=== PATIENT | female | born 1950 | race Caucasian/White ===

== ENCOUNTER 2018-07-12 18:53 | Inpatient (IN) ==
[2018-07-12] MEDS ORDERED: ZOFRAN IV ONE (20:01)
[2018-07-12] MEDS ORDERED: NS 1,000 ML IV ONE (20:01)
[2018-07-12] MEDS ORDERED: ROCEPHIN 1 GM in NS 50 ML IV ONE (20:01)
[2018-07-12 20:31] LABS: BASO# 0.02 X1000 (0.0-0.2); BASO% 0.1 % (0.0-0.8); EOS# 0.12 X1000 (0.0-0.7); EOS% 0.7 % (0.0-10.0); HEMATOCRIT 41.8 % (37.0-47.0); HEMOGLOBIN 12.7 g/dL (12.0-16.0); IMM GRAN# 0.04 X1000 (0.0-0.04); IMM GRAN% 0.2 % (0.0-0.5); LYMPH# 0.53 X1000 (1.2-3.4); LYMPH% 3.3 % (20.5-51.1); MCH 26.2 PG (27-31); MCHC 30.4 g/dL (33-37); MCV 86.2 FL (81-99); MONO# 0.61 X1000 (0.11-0.59); MONO% 3.8 % (1.7-9.3); MPV 9.9 FL (7.4-10.4); NEUT# 14.82 X1000 (1.4-6.5); NEUT% 91.9 % (42.2-75.2); PLT 269 X1000 (130-400); RBC 4.85 XMIL (4.2-5.4); RDW 17.4 % (11.5-14.5); WBC 16.14 X1000 (4.8-10.8)
[2018-07-12 20:39] LABS: ALBUMIN 3.7 g/dL (3.5-5.0); CALCIUM 10.6 mg/dL (8.8-10.2); CREATININE 1.7 mg/dL (0.5-0.9); POTASSIUM 5.1 mmol/L (3.5-5.1); TOTAL BILIRUBIN 0.18 mg/dL (0.20-1.00); TOTAL PROTEIN 7.5 g/dL (6.3-8.3)
[2018-07-12 20:45] LABS: ALLEN TEST YES; BE 0.6 mmoll (-3.0-3.0); BLOOD TYPE ARTERIAL; HCO3-(ACT) 25.2 mmoll (20.0-26.0); METHB 1.1 % (0.0-1.5); O2(CT) 14.7 mL/dL (15.0-23.0); PCO2(98.6) 36 mmHg (35-45); PO2(98.6) 53 mmHg (60-100); SAMPLE BLOOD; SAO2 90.5 % (95.0-100.0); THB 11.9 g/dL (11.5-17.4); pH(98.6) 7.44 (7.35-7.45)
[2018-07-12 20:48] LABS: MODALITY CANNULA
--- NOTE | 2018-07-12 21:02 | Diag Imaging Result Doc PS360 ---
CHEST-PORTABLE - 07/12/2018 INDICATION: sob COMPARISON: 02/14/2014 FINDINGS: Lung volumes are severely low. No infiltrates or edema. Heart size is normal. IMPRESSION: Severely low lung volumes but otherwise negative. Electronically signed by Armin Browning 07/12/2018 8:59 PM
--- NOTE | 2018-07-12 21:43 | PROVIDER DOCUMENTATION ---
This chart was entered by Hattie Azul Scribe, acting as scribe for Juaquin Edwards MD. HPI-General Adult - General Chief Complaint: General Adult Stated Complaint: FEVER Time Seen by Provider: 07/12/18 19:45 Source: family Allergies/Adverse Reactions: Patient Allergies Allergy/AdvReac Type Severity Reaction Status Date / Time No Known Allergies Allergy Verified 07/12/18 19:20 Home Medications: Home Medication List Medication Instructions Recorded Confirmed Last Taken Type Aspirin EC 81 mg PO DAILY 05/23/12 02/04/16 02/04/16 09:00 History Levothyroxine [Synthroid] 125 mcg PO QAM 05/23/12 02/04/16 02/03/16 06:00 History Chlorthalidone 25 mg PO DAILY 09/23/13 02/04/16 02/04/16 09:00 History PRAVAstatin [Pravachol] 40 mg PO DAILY 09/23/13 02/04/16 02/04/16 21:00 History Sertraline [Zoloft] 50 mg PO HS 09/23/13 02/04/16 02/04/16 21:00 History Alprazolam [Xanax] 0.5 mg PO TID #0 tablet 02/20/14 02/05/16 02/04/16 17:00 Rx Gabapentin [Neurontin] 300 mg PO TID #60 capsule 02/20/14 02/05/16 02/04/16 17:00 Rx Lisinopril [Zestril] 10 mg PO BID #0 tablet 02/20/14 02/04/16 02/03/16 06:00 Rx Oxycodone HCl/Acetaminophen 1 each PO TID PRN #60 tablet 02/20/14 02/05/16 02/04/16 17:00 Rx [Percocet 5-325 mg Tablet] Buspirone [Buspar] 10 mg PO BID 02/04/16 02/05/16 02/04/16 17:00 History Ciclopirox Olamine 0.77% Cream 1 applicatn TOP BID 02/04/16 02/05/16 02/04/16 17:00 History [Loprox 0.77% Cream] Clopidogrel [Plavix] 75 mg PO DAILY 02/04/16 02/04/16 02/04/16 09:00 History Loratadine [Claritin] 10 mg PO DAILY 02/04/16 02/04/16 02/04/16 09:00 History Magnesium Hydroxide [Milk of 30 ml PO DAILY 02/04/16 02/04/16 02/04/16 09:00 History Magnesia] Metformin [Glucophage] 2 tab PO QHS 02/04/16 02/04/16 02/04/16 21:00 History Multivit,Fe,Ca,FA & Min [Thera M 1 each PO DAILY 02/04/16 02/04/16 02/04/16 09:00 History Plus] Polyethylene Glycol 3350 1 gm PO DAILY 02/04/16 02/04/16 02/04/16 09:00 History Protein Hydrolysate,Milk [Liquid 30 ml PO BID 02/04/16 02/05/16 02/04/16 17:00 History Protein Fortifier] Ranitidine HCl [Zantac] 150 mg PO DAILY 02/04/16 02/05/16 02/04/16 17:00 History Vitamin B Complex 1 each PO DAILY 02/04/16 02/04/16 02/04/16 09:00 History - History of Present Illness -Gen Adult Nature of Presenting Problems: Pt is 67/F presenting to ED from [facility]. Pt has hx of stroke and HTN, pt is nonverbal and has family member at bedside. Pt is reported to be at normal mentation. She presents to ED because of low-grade fever 99.8 and 100.8 and vomiting. Family member reports that pt has recently has "wet" sounding lungs per [facility]dc. Location of Pain/Injury: reports: none, other (pt does not appear to be in any pain at time of exams) Pain Radiation: reports: no radiation Quality of Pain: reports: none Severity: reports: mild Onset/Duration: reports: just prior to arrival Timing: reports: still present Context/Activities at Onset: reports: none Modifying Factors: improves with: nothing Associated Symptoms: reports: fever/chills, vomiting. denies: cough, diarrhea, shortness of breath Similar Symptoms Previously?: No Recently seen or treated by another doctor?: No Review of Systems - Adult - REVIEW OF SYSTEMS - ADULT Constitutional: reports: fever. denies: chills Eyes: reports: no symptoms reported Ears, Nose, Mouth & Throat: reports: no symptoms reported. denies: ear pain, sinus problem, throat pain Cardiovascular: denies: chest pain Respiratory: reports: no symptoms reported. denies: cough Gastrointestinal: reports: vomiting. denies: abdominal pain, diarrhea Genitourinary: reports: no symptoms reported. denies: frequent UTI's Musculoskeletal: reports: no symptoms reported Integumentary: reports: no symptoms reported Neurological: reports: no symptoms reported. denies: dizziness/vertigo, headache/migraines Psychiatric: reports: no symptoms reported Endocrine: reports: no symptoms reported Hematologic/Lymphatic: reports: no symptoms reported Allergic/Immunologic: reports: no symptoms reported All Other Systems: Reviewed and Negative Past History - Adult - PAST MEDICAL HISTORY-ADULT Review of Records: reports: Old Records Reviewed, Nursing Assessment Review, Medications Reviewed, Social history reviewed & non-contributory. Major Childhood Illnesses: reports: denies history Cardiovascular: reports: HTN, hyperlipidemia Respiratory: reports: asthma Gastrointestinal: reports: denies history Obstetrical/Gynecological: reports: denies history Genitourinary: reports: kidney disease Musculoskeletal: reports: arthritis Neurological: reports: cognitive dysfunction, CVA, stroke deficits, TIA Endocrine/Immune: reports: thyroid disorder Other Conditions: reports: denies history - PRIOR SURGERIES/PROCEDURES Surgical/Procedure History: reports: cholecystectomy, hysterectomy - IMMUNIZATION STATUS Childhood Immunizations: See Nurse Assessment Flu Vaccine: See Nurse Assessment - SOCIAL HISTORY Smoking: denies, non-smoker Substance Use: none/never Alcohol Use Frequency: never Living Situation: care facility Physical Exam-General - PHYSICAL EXAM-ADULT Initial Vital Signs Reviewed: Yes - CONSTITUTIONAL General Appearance: appears well, alert, no apparent distress, other (pt is non verbal, but reported to be at normal mentation per family member) - EYES Eyes: PERRL/EOMI, pink conjunctivae - HEAD, EARS, NOSE, MOUTH & THROAT HENMT: normocephalic/atraumatic, moist mucous membranes, normal ENT inspection - NECK Neck: non-tender, full range of motion, supple - RESPIRATORY Respiratory: rales, rhonchi (rales and rhonchi in L lower bases) - CARDIOVASCULAR Cardiovascular: normal peripheral pulses, no edema, tachycardia (113) - GASTROINTESTINAL (ABDOMEN) Abdominal Exam: normal bowel sounds, non tender, soft - LYMPHATIC Lymphatic: no adenopathy - MUSCULOSKELETAL Back Exam: normal inspection, no CVA tenderness, no vertebral tenderness Extremity: non-tender - SKIN Integumentary: normal color, warm/dry, other (pt has pressure ulcer on tip of R large toe. Raise rash w/ firm border to top of L foot, 20+ spots that are close in proximity to one another) - NEUROLOGIC Neurologic: grossly normal - PSYCHIATRIC Psych/Mental Status: normal mood/affect, normal thought content, normal thought process, other (reports to be at normal mentation, is non verbal but appears to follow along w/ conversation using body language) Progress - PLAN OF CARE/RESULTS Progress/Plan/Lab Results: Vital Signs - 8 hr 07/12/18 19:14 Temperature 98.2 F Pulse Rate 113 H Respiratory Rate 16 Blood Pressure 102/71 O2 Sat by Pulse Oximetry 85 L Result Diagrams: 07/12/18 19:50 07/12/18 19:50 - REASSESSMENT Reassessment #1 Time Reassessed: 21:39 Status: unchanged (LEUKOCYTOSIS, DEHYDRATIN, PROBABLE BI-BASILAR PNEUMONIA BY AUSCULTATION. CULTURES MADE AND ROCEPHIN GIVEN) - CONSULTS/PCP/HOSPITALIST Notification #1 *Consult/PCP/Hospitalist*: [place] Time Discussed: 21:37 Reason/Comments: for admission Consult Disposition: Admit Departure - Departure Date of Disposition Decision: 07/12/18 Time of Disposition Decision: 21:40 DIAGNOSIS: Leukocytosis, Pneumonia, Dehydration, Delirium Disposition: ADMITTED INPATIENT 09 Certified Medical Emergency: Emergent Condition: Stable Referrals and Follow-Ups: Shay Burciaga MD [Primary Care Provider] - - Critical Care Note This patient required my direct & personal management of CC.: No Attestation - Physician/ DESIREE Attestation Patient care was provided by Advanced Practice Provider:: No The physician spent face to face time with patient:: Yes Advanced Practice Provider documentation review:: Supervising physician onsite and consulted in the evaluation and care of this patient. The physician did have a face to face encounter with the patient. This chart was documented by the indicated scribe, (Hattie Azul, Vladimir) and accurately reflects the services I performed and decisions made by me, Juaquin Edwards MD, as attested by the provider's signature.
[2018-07-12] MEDS ORDERED: DUONEB (A & A) INH ONE (22:10)
[2018-07-12 22:22] LABS: URINE SOURCE CATH
[2018-07-12 22:29] LABS: BILIRUBIN URINE NEGATIVE (NEGATIVE); BLOOD URINE SMALL (NEGATIVE); COLOR YELLOW; GLUCOSE URINE 150 mg/dL (NEGATIVE); KETONE URINE NEGATIVE (NEGATIVE); LEUKOCYTES URINE NEGATIVE (NEGATIVE); NITRITE URINE NEGATIVE (NEGATIVE); PH URINE 6.5; PROTEIN URINE 600 mg/dL (NEGATIVE); SP GRAVITY URINE 1.008; TURBIDITY URINE CLEAR (CLEAR); UR EPITHELIAL CELLS <10 /HPF (<10); URINE BACTERIA NEGATIVE /HPF; URINE WBC <10 /HPF (<10); UROBILINOGEN URINE NORMAL (NORMAL)
[2018-07-12] MEDS ORDERED: XANAX MISC ONE (23:47)
--- NOTE | 2018-07-13 01:08 | HISTORY AND PHYSICAL ---
PHYSICIAN: No primary care physician. [facility] patient. HISTORY OF PRESENT ILLNESS: Ms. Jackie Montes De Oca is a 67-year-old woman with expressive aphasia from 2 prior CVAs. She also has a history of a preexisting aneurysm, hypertension, type 2 diabetes, hyperlipidemia. She was brought in today via EMS from the senior care because she was more confused than normal. Patient is unable to give me any history because she is nonverbal. Her son is at bedside and we both tried to extract as much information as we can. The patient nodded when she said she had a cough and said she had a fever or she was short of breath. The only thing I could also extract from the patient was that she was hurting in her left leg when I touched it. Other than that, we were unable to get any other information from the patient. The patient was actually able to recognize her son when he walked into the room. REVIEW OF SYSTEMS: I was unable to get any meaningful review of systems from the patient. The son did, however, tell me that on occasion sometimes she does choke on her food. ALLERGIES: No known allergies. MEDICATIONS: Home medication list is yet to be reconciled. SURGICAL HISTORY: Cholecystectomy, right breast lumpectomy. PAST MEDICAL HISTORY: See above including right breast cancer and history of kidney stones. SOCIAL HISTORY: She lives in a senior care. Not currently smoking according to the son, alcohol or illicit drug use. FAMILY HISTORY: Notable for diabetes, heart disease, alcoholic cirrhosis. LAB WORK: White count 16,000. Hemoglobin and hematocrit 12 and 41. Platelets 269 with 91% neutrophils. Glucose 222. Calcium 10.6. BUN 57. Creatinine 1.7, up from 1.2 the last time she was here. Alkaline phosphatase 121. AST 40. ALT 24. Blood gas: 7.44 pH, pCO2 of 36, pO2 of 53, bicarbonate 25, O2 saturation 88 and this is on 3 L. Chest film: Poor inspiratory effort which was not very informative. CT thorax and urinalysis are pending at this time. PHYSICAL EXAMINATION: GENERAL: Overweight, middle aged woman who is nonverbal but alert. She recognizes her son and will respond to her name. Her orientation is difficult to ascertain due to her speech impediment. She does appear to have a normal mood and affect. HEENT: Head is normocephalic, atraumatic. Eyes: PERRL. EOMI. Anicteric. Not pale. No facial asymmetry. ENT and oropharynx exam: No gross findings noted. No sign of cyanosis. NECK: Supple. No visualized JVD or thyromegaly. CHEST: Patient has diffuse coarse rales and wheezes. Decreased entry in both lung hernandez. CARDIOVASCULAR: First and second heart sounds heard. No gallops, murmurs or rubs. Rhythm is regular. ABDOMEN: Protuberant, soft, nontender. Bowel sounds are normal. RECTAL: Exam deferred at this time. EXTREMITIES: The patient has extensor contractures of the feet. There is positive clonus of both feet. There are clustered annular lesions with hyperpigmented centers noted on the dorsum of the left foot. No edema. No clubbing. No peripheral cyanosis. NEUROLOGICAL: Patient has dense right-sided hemiplegia and left lower extremity hemiparesis. Patient has expressive aphasia. SKIN: No overt skin breakdown ventrally. I did not do any dorsal examination. MUSCULAR: Patient has hypertonicity of entire right-sided extremities and left-sided lower extremity. ASSESSMENT: 1. Acute kidney injury secondary to poor oral intake and concomitant use of diuretics and JOHN inhibitors. 2. Hypoxia probably secondary to aspiration pneumonia. 3. Uncontrolled type 2 diabetes. 4. Expressive aphasia from prior cerebrovascular accident. 5. Hypertension. 6. Hyperthyroidism. 7. Hyperlipidemia. PLAN: Patient will be cautiously hydrated. BMP repeated in the a.m. to document response to hydration. At this point in time, patient is getting a noncontrast thorax CT to evaluate lung bases based on patient's chest exam. Patient has a history of aspiration risk and her pretest probability for pneumonia is on the high side especially since she is hypoxic and has wheezes. We will get Speech Therapy to see patient. In the interim, we will cover the patient with Zosyn for nosocomial and aspiration-related pathogens. Nebulizer treatment, O2 supplementation were instituted. Await urine cultures and may consider modifying treatment or adding on maybe vancomycin in case enterococcus is suspected. Diabetes will be managed with sliding scale. Avoiding potentially neurotoxic medications in the short term and also avoid any potential nephrotoxic medications. cc: Vamshi Yang MD
[2018-07-13] MEDS ORDERED: ZOFRAN IV PRN (02:34)
[2018-07-13] MEDS ORDERED: TYLENOL PO PRN (02:34)
[2018-07-13] MEDS: LOVENOX SUBQ SCH (03:56)
[2018-07-13] MEDS: ZOSYN 3.375 GM in NS 50 ML IV SCH ×4 (03:56→22:40)
[2018-07-13] MEDS: NS 1,000 ML IV SCH ×2 (03:56→15:00)
[2018-07-13] MEDS ORDERED: DUONEB (A & A) INH SCH (04:00)
[2018-07-13 05:02] LABS: INR 0.94; PROTIME 13.4 Seconds (11.0-16.0)
[2018-07-13] MEDS: HUMALOG SUBQ SCH ×4 (06:24→22:46)
[2018-07-13] MEDS ORDERED: PERCOCET-5 PO PRN (07:00)
--- NOTE | 2018-07-13 07:04 | Diag Imaging Result Doc PS360 ---
EXAM: CT THORAX W/O CONTRAST 07/12/2018 HISTORY: PNA possible TECHNIQUE: This exam was performed using automated exposure control, adjustment of mA or kV according to patient size, and/or use of iterative reconstruction technique. COMMENT: The current examination is compared with the previous examination of 03/23/2018. There are ill-defined opacities present in both lower lobes particularly the right lower lobe. Some nodularity is noted in the left lower lobe. The mucous plug is noted in the peripheral airways in the left lower lobe at the time the previous study has apparently improved slightly. There is a calcified granuloma in the right middle lobe. There is extensive atherosclerotic calcification in the aorta and brachiocephalic vessels. There are coronary calcifications. There are calcified nodes in the subcarina and right hilum. There is at least one granuloma in the spleen. The spleen is slightly enlarged, measuring slightly over 13 cm. This is not changed significantly since the previous study. The liver appears somewhat less hypodense. IMPRESSION: Bronchopneumonia. Advise follow-up with plain radiography until clear. Improved hepatic steatosis. Electronically signed by Almas Finley 07/13/2018 7:02 AM
--- NOTE | 2018-07-13 07:06 | EKG Report ---
Test Performed on : 07/12/2018 10:49:29 PM Test Reason : sob Blood Pressure : / mmHG Vent. Rate : 101 BPM Atrial Rate : 101 BPM P-R Int : 176 ms QRS Dur : 084 ms QT Int : 354 ms P-R-T Axes : 036 -23 059 degrees QTc Int : 459 ms Sinus tachycardia. Low voltage QRS Borderline ECG When compared with ECG of 05-FEB-2016 05:46, Nonspecific T wave abnormality no longer evident in Anterior leads Unconfirmed Result
[2018-07-13] MEDS: PROTONIX IV SCH (07:54)
[2018-07-13] MEDS: SYNTHROID PO SCH (07:54)
[2018-07-13 08:02] LABS: CALCIUM 9.6 mg/dL (8.8-10.2); CREATININE 1.6 mg/dL (0.5-0.9); MAGNESIUM 2.3 mg/dL (1.5-2.7); POTASSIUM 4.4 mmol/L (3.5-5.1)
[2018-07-13 08:23] LABS: BASO# 0.01 X1000 (0.0-0.2); BASO% 0.1 % (0.0-0.8); EOS# 0.09 X1000 (0.0-0.7); EOS% 0.6 % (0.0-10.0); HEMATOCRIT 35.4 % (37.0-47.0); HEMOGLOBIN 10.8 g/dL (12.0-16.0); IMM GRAN# 0.04 X1000 (0.0-0.04); IMM GRAN% 0.3 % (0.0-0.5); LYMPH# 1.33 X1000 (1.2-3.4); LYMPH% 8.4 % (20.5-51.1); MCH 26.7 PG (27-31); MCHC 30.5 g/dL (33-37); MCV 87.6 FL (81-99); MONO# 0.87 X1000 (0.11-0.59); MONO% 5.5 % (1.7-9.3); NEUT# 13.41 X1000 (1.4-6.5); NEUT% 85.1 % (42.2-75.2); PLT 223 X1000 (130-400); RBC 4.04 XMIL (4.2-5.4); RDW 17.4 % (11.5-14.5); WBC 15.75 X1000 (4.8-10.8)
[2018-07-13 08:25] LABS: BANDS 6 % (0-1); LYMPHS 6 % (21-51); MONO 4 % (1-9); SEGS 84 % (42-75)
--- NOTE | 2018-07-13 09:48 | Diag Imaging Result Doc PS360 ---
ABDOMEN FLAT/UPRIGHT - 07/13/2018 INDICATION: constipation COMPARISON: 02/09/2013 FINDINGS: There is mild constipation of the descending and distal colon as well as the rectum. No small bowel obstruction or free air. Stable cholecystectomy clips. IMPRESSION: Mild constipation. Electronically signed by Armin Browning 07/13/2018 9:46 AM
[2018-07-13] MEDS ORDERED: INSULIN PEN NEEDLES ONE (09:52)
[2018-07-13] MEDS: BASAGLAR SUBQ SCH ×2 (09:57→09:59)
[2018-07-13] MEDS: NEURONTIN PO SCH ×3 (10:00→17:00)
[2018-07-13] MEDS: XANAX PO SCH ×3 (10:00→22:43)
[2018-07-13] MEDS: NORVASC PO SCH (10:00)
[2018-07-13] MEDS: ICAR-C PO SCH (10:00)
[2018-07-13] MEDS: ASPIRIN EC PO SCH (10:00)
[2018-07-13] MEDS: THERA M PLUS PO SCH (10:00)
[2018-07-13] MEDS: PLAVIX PO SCH (10:00)
[2018-07-13] MEDS: PRINIVIL PO SCH ×2 (10:00→22:43)
[2018-07-13] MEDS: LOPROX 0.77% TOP SCH ×2 (10:01→22:55)
[2018-07-13] MEDS: DUONEB (A & A) INH SCH ×3 (10:15→21:05)
[2018-07-13] MEDS: MUCOMYST 20% INH SCH ×2 (10:15→21:05)
[2018-07-13] MEDS: LIPITOR PO SCH (22:43)
[2018-07-13] MEDS: SEROQUEL PO SCH (22:43)
[2018-07-14] MEDS: DUONEB (A & A) INH SCH ×4 (03:20→21:13)
[2018-07-14] MEDS: ZOSYN 3.375 GM in NS 50 ML IV SCH ×5 (04:53→21:34)
[2018-07-14] MEDS: HUMALOG SUBQ SCH ×4 (06:41→21:29)
[2018-07-14] MEDS: LOVENOX SUBQ SCH (06:48)
[2018-07-14] MEDS: PROTONIX IV SCH (06:49)
[2018-07-14] MEDS: SYNTHROID PO SCH (06:49)
--- NOTE | 2018-07-14 07:42 | PROGRESS NOTE ---
DATE: 07/14/2018 SUBJECTIVE: Ms. Montes De Oca is doing fair. Not able to give good history as patient has expressive aphasia. No high-grade fever, chills. No nausea, vomiting. Denied any diarrhea. According to nurses, the patient did have good day yesterday. The patient admitted with cough and chest congestion, altered mental status, found to have bilateral lower lobe infiltrate. OBJECTIVE: Vital Signs: Noted. Neck: Supple. No JVD. Lungs: Bibasilar crepitations. Heart: S1 and S2 heard. Abdomen: Soft, globular. Bowel sounds present. Extremities: No cyanosis, clubbing. Patient does have rash on the left foot. PRINTING TABLE HAND: Alert, awake, expressive aphasia, right-sided weakness. CONSIDERATIONS: Possible aspiration pneumonia, diabetes mellitus, hypertension, expressive aphasia, rash on the left foot, hypothyroidism, chronic kidney disease. PLAN: We will continue current treatment. Close observation. Bronchodilator treatment. Aspiration precautions. Overall plan discussed with the patient. We will continue sliding scale insulin and current treatment. cc: Shay Burciaga MD
[2018-07-14] MEDS: BASAGLAR SUBQ SCH (09:27)
[2018-07-14] MEDS: ASPIRIN EC PO SCH (09:28)
[2018-07-14] MEDS: NEURONTIN PO SCH ×3 (09:28→17:33)
[2018-07-14] MEDS: LOPROX 0.77% TOP SCH ×2 (09:28→21:30)
[2018-07-14] MEDS: NORVASC PO SCH (09:28)
[2018-07-14] MEDS: THERA M PLUS PO SCH (09:28)
[2018-07-14] MEDS: XANAX PO SCH ×3 (09:28→21:21)
[2018-07-14] MEDS: PLAVIX PO SCH (09:28)
[2018-07-14] MEDS: ICAR-C PO SCH (09:28)
[2018-07-14] MEDS: PRINIVIL PO SCH ×2 (09:28→21:21)
[2018-07-14] MEDS: MUCOMYST 20% INH SCH ×2 (09:46→21:13)
[2018-07-14] MEDS: LIPITOR PO SCH (21:21)
[2018-07-14] MEDS: SEROQUEL PO SCH (21:21)
[2018-07-15] MEDS: DUONEB (A & A) INH SCH ×4 (03:12→21:17)
[2018-07-15] MEDS: ZOSYN 3.375 GM in NS 50 ML IV SCH (05:36)
[2018-07-15] MEDS: SODIUM CHLORIDE 0.9% INJ SCH (05:37)
[2018-07-15] MEDS: SYNTHROID PO SCH (06:12)
[2018-07-15] MEDS: PROTONIX IV SCH (06:12)
[2018-07-15] MEDS: LOVENOX SUBQ SCH (06:12)
[2018-07-15] MEDS: HUMALOG SUBQ SCH ×4 (06:20→21:39)
[2018-07-15 07:36] LABS: BASO# 0.01 X1000 (0.0-0.2); BASO% 0.2 % (0.0-0.8); EOS# 0.28 X1000 (0.0-0.7); EOS% 4.3 % (0.0-10.0); HEMOGLOBIN 10.3 g/dL (12.0-16.0); LYMPH# 1.14 X1000 (1.2-3.4); LYMPH% 17.4 % (20.5-51.1); MCH 25.9 PG (27-31); MCHC 29.4 g/dL (33-37); MCV 88.2 FL (81-99); MONO% 7.6 % (1.7-9.3); MPV 9.8 FL (7.4-10.4); NEUT# 4.62 X1000 (1.4-6.5); NEUT% 70.5 % (42.2-75.2); PLT 216 X1000 (130-400); RBC 3.97 XMIL (4.2-5.4); RDW 17.4 % (11.5-14.5); WBC 6.55 X1000 (4.8-10.8)
[2018-07-15 08:12] LABS: ALB/GLOB RATIO 0.7; ALBUMIN 2.7 g/dL (3.5-5.0); CALCIUM 9.2 mg/dL (8.8-10.2); MAGNESIUM 2.3 mg/dL (1.5-2.7); POTASSIUM 3.5 mmol/L (3.5-5.1); TOTAL BILIRUBIN 0.28 mg/dL (0.20-1.00); TOTAL PROTEIN 6.8 g/dL (6.3-8.3)
[2018-07-15] MEDS: PLAVIX PO SCH (08:52)
[2018-07-15] MEDS: ASPIRIN EC PO SCH (08:53)
[2018-07-15] MEDS: THERA M PLUS PO SCH (08:53)
[2018-07-15] MEDS: BASAGLAR SUBQ SCH (08:53)
[2018-07-15] MEDS: XANAX PO SCH ×3 (08:53→20:16)
[2018-07-15] MEDS: ICAR-C PO SCH (08:53)
[2018-07-15] MEDS: PRINIVIL PO SCH ×2 (08:53→20:16)
[2018-07-15] MEDS: NORVASC PO SCH (08:53)
[2018-07-15] MEDS: NEURONTIN PO SCH ×3 (08:53→20:16)
[2018-07-15] MEDS: LOPROX 0.77% TOP SCH ×2 (08:54→20:18)
[2018-07-15] MEDS: MUCOMYST 20% INH SCH ×2 (10:35→21:17)
--- NOTE | 2018-07-15 11:47 | PROGRESS NOTE ---
DATE: 07/15/2018 SUBJECTIVE: The patient is doing fair. The patient had low-grade fever. No nausea or vomiting. Oral intake is fair. Mild cough, no expectoration. History part is limited. OBJECTIVE: Vitals: Her vital signs are noted. T-max 99.2 degrees. Neck: Supple. No JVD. Lungs: Decreased air entry to both bases. CVS: S1 and S2 heard. Abdomen: Soft, globular. Bowel sounds present. Extremities: The patient does have rash on the left foot. PRINCIPAL JAVA DEVELOPER: Alert and awake. The patient has right-sided weakness and expressive aphasia. LABORATORY DATA: BUN 35, creatinine was 2, potassium 3.5. PROBLEMS: 1. Possible aspiration pneumonia. 2. Chronic kidney disease. 3. CVA with right-sided weakness. 4. Diabetes mellitus. 5. Hypothyroidism. PLAN: The patient does have chronic kidney disease. I am going to get a renal ultrasound. I will also get noncontrast CT scan of the abdomen and pelvis for further evaluation. We will get Nephrology consult. Continue the rest of the treatment and close observation. cc: Shay Burciaga MD
[2018-07-15] MEDS: ZOSYN 2.25 GM in NS 50 ML IV SCH ×3 (12:40→23:24)
--- NOTE | 2018-07-15 16:44 | Diag Imaging Result Doc PS360 ---
EXAM: US RENAL 2 (RETROPER) COMPLETE INDICATION: ckd TECHNIQUE: COMPARISON: None. FINDINGS: There is a 9 mm echogenic focus associated with the right kidney that probably represents a small intrarenal stone. There is a 1.9 cm simple cyst associated with the left kidney. Near the mid left kidney, there is a 2.5 cm hypoechoic focus. This probably represents a prominent lobule of normal renal tissue. It is difficult to exclude a small mass. If not contraindicated, contrast-enhanced CT of the abdomen and pelvis would be helpful. Otherwise, MRI may be an option. The right kidney measures 12.1 cm and the left kidney measures 11.5 cm in the greatest longitudinal axes. Both renal cortices measure up to 0.9 cm in thickness. There is a Watson catheter in the urinary bladder. The urinary bladder is grossly unremarkable, otherwise. IMPRESSION: 1.Likely small nonobstructing intrarenal stone on the right. 2.Low dense somewhat rounded focus associated with the left renal cortex that probably represents a lobule of normal tissue. A small mass is difficult to completely exclude. Please see above discussion. Electronically signed by Robson Vargas 07/15/2018 4:41 PM
[2018-07-15] MEDS: NS + KCL 20 MEQ 1,000 ML IV SCH (17:46)
--- NOTE | 2018-07-15 19:40 | NEPHROLOGY CONSULTATION ---
DATE: 07/15/2018 REASON FOR CONSULTATION: Abnormal kidney function. HISTORY OF PRESENT ILLNESS: Ms Montes De Oca is a 67-year-old white female who resides in a care home facility because of history of a stroke with aphasia and bed-bound state. She has a history of diabetes, hypertension, hyperlipidemia. She does not know why she is in the hospital. The notes state that she was brought in because she had altered mental status. Reference also to fever and shortness of breath. She is awake, alert, asked for the remote. No complaints. Very limited history because she is not able to answer my questions. PAST MEDICAL HISTORY: As above. HOME MEDICATIONS: Include aspirin, levothyroxine, sertraline, gabapentin, oxycodone, alprazolam, lisinopril, clopidogrel, multivitamin, ranitidine, amlodipine, atorvastatin, insulin, ipratropium, albuterol, quetiapine. ALLERGIES: None. SOCIAL HISTORY: As above. FAMILY HISTORY: Otherwise noncontributory. REVIEW OF SYSTEMS: Otherwise noncontributory. PHYSICAL EXAMINATION: Vital Signs: Blood pressure 122/61, heart rate 78, respirations 16, afebrile. General: No acute distress. Skin: Warm and dry. Conjunctivae are pink. Pupils are equal. Neck: Neck veins are not distended. Heart: Regular without gallops or murmurs. Lungs: Have equal breath sounds. No crackles or wheezes. Abdomen: Soft, nontender. Bowel sounds present. Extremities: No edema, clubbing or cyanosis. Extension contractures in the feet. IMPRESSION: Chronic kidney disease. We do not have a good recent historical data. Creatinine was 1.7 on presentation, 1.2 in 2016. Her urine has significant proteinuria, minimal blood consistent with diabetic nephropathy. She is on appropriate therapy at this time. No changes are required. Will follow. cc: MD Shay Jacobs MD
[2018-07-15] MEDS: LIPITOR PO SCH (20:16)
[2018-07-15] MEDS: SEROQUEL PO SCH (20:16)
[2018-07-16] MEDS: DUONEB (A & A) INH SCH ×4 (03:16→21:37)
[2018-07-16] MEDS: ZOSYN 2.25 GM in NS 50 ML IV SCH ×4 (04:45→22:56)
[2018-07-16] MEDS: LOVENOX SUBQ SCH (06:08)
[2018-07-16] MEDS: SODIUM CHLORIDE 0.9% INJ SCH (06:08)
[2018-07-16] MEDS: PROTONIX IV SCH (06:08)
[2018-07-16] MEDS: SYNTHROID PO SCH (06:09)
[2018-07-16] MEDS: HUMALOG SUBQ SCH ×4 (06:09→21:17)
[2018-07-16] MEDS: NEURONTIN PO SCH ×3 (08:52→21:15)
[2018-07-16] MEDS: XANAX PO SCH ×3 (08:52→21:15)
[2018-07-16] MEDS: NORVASC PO SCH (08:52)
[2018-07-16] MEDS: THERA M PLUS PO SCH (08:52)
[2018-07-16] MEDS: PRINIVIL PO SCH ×2 (08:52→21:15)
[2018-07-16] MEDS: ASPIRIN EC PO SCH (08:52)
[2018-07-16] MEDS: ICAR-C PO SCH (08:52)
[2018-07-16] MEDS: PLAVIX PO SCH (08:52)
[2018-07-16] MEDS: NS + KCL 20 MEQ 1,000 ML IV SCH ×2 (08:53→22:54)
[2018-07-16] MEDS: BASAGLAR SUBQ SCH (08:53)
[2018-07-16] MEDS: LOPROX 0.77% TOP SCH ×2 (08:53→21:16)
[2018-07-16] MEDS: MUCOMYST 20% INH SCH ×2 (10:21→21:37)
--- NOTE | 2018-07-16 11:49 | PROGRESS NOTE ---
DATE: 07/16/2018 SUBJECTIVE: Ms. Montes De Oca is doing fair. Not able to give any history. No high-grade fever or chills. No nausea or vomiting. Oral intake is fair. Patient does have Watson catheter. I reviewed her renal ultrasound result. Also Nephrology consult noted. OBJECTIVE: Vital signs: Noted. Neck: Supple. No JVD. Lungs: Bilateral good air entry present. Decreased air entry both the bases. CVS: S1 and S2 heard. Abdomen: Soft, nontender. Bowel sounds present. PRODUCT SAFETY PROFESSIONAL: Alert, awake. Patient does have right-sided weakness. Expressive aphasia. PROBLEM LIST: 1. Hypertension. 2. Diabetes mellitus. 3. Chronic kidney disease. 4. Possible aspiration pneumonia. 5. Hypothyroidism. PLAN: Consider blood work again. Continue IV antibiotics. Pulmonary toilet. Bronchodilator treatment. If clinical condition permits, we will consider further workup, possible discharge within a day or 2. cc: Shay Burciaga MD
[2018-07-16] MEDS: LIPITOR PO SCH (21:15)
[2018-07-16] MEDS: SEROQUEL PO SCH (21:16)
[2018-07-17] MEDS: DUONEB (A & A) INH SCH ×4 (03:17→19:35)
--- NOTE | 2018-07-17 03:54 | PROGRESS NOTE ---
DATE: 07/13/2018 SUBJECTIVE: Ms. Montes De Oca is a 67-year-old, white, female patient, a resident of [facility], admitted with chest congestion, cough, wheezing, shortness of breath, not responding to outpatient treatment. The patient also had increasing confusion. Patient had expressive aphasia. History part was limited. In the emergency room, the patient was found to have chronic kidney disease, which I was aware of, low lung volumes. The patient does have multiple medical problems. Evaluated in the ER. Admitted for further care. Admission history and physical noted. PAST MEDICAL HISTORY: Significant for hypertension, diabetes mellitus, hyperlipidemia, CVA with left-sided weakness, chronic kidney disease, hypothyroidism, gastritis and reflux disease, chronic pain, history of breast cancer. PHYSICAL EXAMINATION: Vital Signs: Noted. INCOMPLETE REPORT/DICTATION STOPS cc: Shay Burciaga MD
[2018-07-17] MEDS: SODIUM CHLORIDE 0.9% INJ SCH (06:19)
[2018-07-17] MEDS: ZOSYN 2.25 GM in NS 50 ML IV SCH ×4 (06:19→22:31)
[2018-07-17] MEDS: PROTONIX IV SCH (06:19)
[2018-07-17] MEDS: LOVENOX SUBQ SCH (06:20)
[2018-07-17] MEDS: NS + KCL 20 MEQ 1,000 ML IV SCH ×2 (06:20→14:06)
[2018-07-17] MEDS: SYNTHROID PO SCH (06:20)
[2018-07-17] MEDS: HUMALOG SUBQ SCH ×4 (06:46→22:14)
--- NOTE | 2018-07-17 06:52 | PROGRESS NOTE ---
DATE: 07/17/2018 SUBJECTIVE: Ms. Montes De Oca is doing fair. The patient did have mild cough. No expectoration. No high-grade fever or chills. Denied any nausea or vomiting. OBJECTIVE: Vital Signs: Her vital signs noted. Neck: Supple. No JVD. Lungs: Bibasilar crepitations. Heart: S1 and S2 heard. Abdomen: Soft, globular. Bowel sounds present. DETACKER: Alert, awake. Patient does have expressive aphasia and right-sided weakness. ASSESSMENT/PLAN: I am going to check appropriate labs today. Continue current treatment. After reviewing labs and chest x-ray, if clinical condition permits, I am planning to discharge her back to rehab soon. cc: Shay Burciaga MD
[2018-07-17 07:32] LABS: BASO# 0.04 X1000 (0.0-0.2); BASO% 0.8 % (0.0-0.8); EOS# 0.54 X1000 (0.0-0.7); EOS% 11.1 % (0.0-10.0); HEMATOCRIT 32.2 % (37.0-47.0); HEMOGLOBIN 9.7 g/dL (12.0-16.0); IMM GRAN# 0.02 X1000 (0.0-0.04); IMM GRAN% 0.4 % (0.0-0.5); LYMPH# 1.21 X1000 (1.2-3.4); LYMPH% 24.9 % (20.5-51.1); MCH 26.7 PG (27-31); MCHC 30.1 g/dL (33-37); MCV 88.7 FL (81-99); MONO# 0.44 X1000 (0.11-0.59); MONO% 9.1 % (1.7-9.3); MPV 9.9 FL (7.4-10.4); NEUT# 2.61 X1000 (1.4-6.5); NEUT% 53.7 % (42.2-75.2); PLT 241 X1000 (130-400); RBC 3.63 XMIL (4.2-5.4); RDW 16.8 % (11.5-14.5); WBC 4.86 X1000 (4.8-10.8)
--- NOTE | 2018-07-17 07:35 | Diag Imaging Result Doc PS360 ---
EXAM: CHEST-PORTABLE 07/17/2018 HISTORY: dyspnea TECHNIQUE: AP portable at 0529 COMMENT: There is increased ill-defined opacity in both lung bases compared to 07/12/2018. IMPRESSION: Pulmonary edema versus pneumonia. Electronically signed by Almas Finley 07/17/2018 7:33 AM
[2018-07-17 08:13] LABS: ALB/GLOB RATIO 0.5; ALBUMIN 2.2 g/dL (3.5-5.0); CALCIUM 8.5 mg/dL (8.8-10.2); CREATININE 1.4 mg/dL (0.5-0.9); TOTAL BILIRUBIN 0.17 mg/dL (0.20-1.00); TOTAL PROTEIN 6.3 g/dL (6.3-8.3)
[2018-07-17] MEDS: PLAVIX PO SCH (08:41)
[2018-07-17] MEDS: ICAR-C PO SCH (08:41)
[2018-07-17] MEDS: XANAX PO SCH ×3 (08:41→21:56)
[2018-07-17] MEDS: PRINIVIL PO SCH ×2 (08:41→21:56)
[2018-07-17] MEDS: THERA M PLUS PO SCH (08:41)
[2018-07-17] MEDS: ASPIRIN EC PO SCH (08:42)
[2018-07-17] MEDS: BASAGLAR SUBQ SCH (08:42)
[2018-07-17] MEDS: NEURONTIN PO SCH ×3 (08:42→21:56)
[2018-07-17] MEDS: NORVASC PO SCH (08:42)
[2018-07-17] MEDS: LOPROX 0.77% TOP SCH ×2 (08:57→22:14)
[2018-07-17] MEDS: MUCOMYST 20% INH SCH ×2 (09:35→19:35)
[2018-07-17] MEDS ORDERED: CALMOSEPTINE OINTMENT TOP PRN (10:37)
--- NOTE | 2018-07-17 11:19 | NEPHROLOGY PROGRESS NOTE ---
DATE: 07/17/2018 SUBJECTIVE: Patient is sitting up in bed. She will shake her head if she has any complaints. Expressive aphasia noted. OBJECTIVE: Vital Signs: Temperature 97.7 degrees, pulse 75, respiratory rate 20, blood pressure 145/65. Intake 2.9 L. Output 2.6 L via Watson catheter. General: Elderly female, resting in bed. No acute distress. HEENT: Normocephalic and atraumatic. She does have a facial droop from previous CVA. Neck: Supple. Trachea midline. No JVD. Cardiovascular: Regular rate and rhythm. No murmur or gallop. Pulmonary: She is clear but diminished breath sounds to the bases. Remains on O2 supplementation via nasal cannula. Abdomen: Soft, with positive bowel sounds. Nontender and nondistended. : Watson catheter with yellow urine noted. Extremities: She has upper and lower left general edema that appears related to her hemiparalysis. No pretibial edema to the right. Integumentary: Skin is warm and dry. Neurological: She is alert. Difficult to communicate. Lab Data: WBC of 4.8, hemoglobin 9.7. Sodium 140, potassium 4.0, CO2 19, creatinine 1.4 (1.7). Chest x-ray, she continues with ill-defined opacity of lungs compared to previous. Her renal size is 12 cm left kidney and 11.5 cm right kidney. ASSESSMENT AND PLAN: 1. Chronic kidney disease. Likely, this is her historical baseline. We have no recent, old data. She was noted to have a creatinine of 1.2 back in 2016. From a renal perspective, we have nothing further to add to her treatment plan. She can follow up with us as an outpatient within 2 to 3 weeks after discharge. 2. Electrolytes, acid-base balance, anemia. These are stable. No changes. 3. Disposition. Primary believes she may go to rehab today or tomorrow. Dictated by PAVEL Molina for Eugenio Cabrales MD Face to face encounter, data reviewed, discussed with Camilo Constantino on 07/17/18. I agree with the above assessment and plan of care. cc: MD Shay Jacobs MD MTDD
[2018-07-17] MEDS ORDERED: LASIX IV ONE (20:17)
[2018-07-17] MEDS: LIPITOR PO SCH (21:56)
[2018-07-17] MEDS: SEROQUEL PO SCH (21:56)
[2018-07-18] MEDS: DUONEB (A & A) INH SCH ×4 (03:31→21:09)
[2018-07-18] MEDS: ZOSYN 2.25 GM in NS 50 ML IV SCH ×4 (04:40→22:40)
[2018-07-18] MEDS: LOVENOX SUBQ SCH (05:00)
[2018-07-18] MEDS: HUMALOG SUBQ SCH ×4 (06:53→22:39)
[2018-07-18] MEDS: SYNTHROID PO SCH (07:00)
[2018-07-18] MEDS: PROTONIX IV SCH (07:00)
--- NOTE | 2018-07-18 07:18 | PROGRESS NOTE ---
DATE: 07/18/2018 SUBJECTIVE: Ms. Montes De Oca is doing fair. No high-grade fever or chills. Oral intake is poor. Chest x-ray done yesterday revealed pulmonary edema versus pneumonia. I gave her IV Lasix and patient output was around 4200 mL. Her O2 saturation is 96%. Patient is not able to give good history. OBJECTIVE: Vital Signs: Vital signs noted. Neck is supple. No JVD. Lungs: Decreased air entry both the bases. CVS: S1 and S2 heard. Abdomen: Soft, globular. Bowel sounds present. SLIVER LAPPER: Alert, awake. The patient has right-sided weakness. LABORATORY DATA: Done yesterday noted. Her hemoglobin was 9.7, hematocrit 32.2 and WBC count 4.86. CONSIDERATIONS: The patient problems includes pneumonia, pulmonary edema. I am going to continue IV antibiotics. The patient is on Zosyn. Close observation. I gave her a dose of her Lasix yesterday. I will also get echocardiogram. We will watch patient today. Repeat blood work and plan discharging patient to rehab tomorrow. cc: Shay Burciaga MD
[2018-07-18] MEDS: MUCOMYST 20% INH SCH ×2 (09:41→21:09)
[2018-07-18] MEDS: XANAX PO SCH ×3 (10:01→22:43)
[2018-07-18] MEDS: ASPIRIN EC PO SCH (10:01)
[2018-07-18] MEDS: NEURONTIN PO SCH ×3 (10:01→22:43)
[2018-07-18] MEDS: THERA M PLUS PO SCH (10:01)
[2018-07-18] MEDS: ICAR-C PO SCH (10:01)
[2018-07-18] MEDS: PLAVIX PO SCH (10:01)
[2018-07-18] MEDS: PRINIVIL PO SCH ×2 (10:01→22:43)
[2018-07-18] MEDS: NORVASC PO SCH (10:02)
[2018-07-18] MEDS: BASAGLAR SUBQ SCH (10:02)
[2018-07-18] MEDS: LOPROX 0.77% TOP SCH ×2 (10:09→22:46)
[2018-07-18] MEDS: DOXYCYCLINE PO SCH ×2 (13:01→22:43)
[2018-07-18 15:53] LABS: BASO# 0.03 X1000 (0.0-0.2); BASO% 0.6 % (0.0-0.8); EOS# 0.31 X1000 (0.0-0.7); EOS% 6.6 % (0.0-10.0); HEMATOCRIT 33.3 % (37.0-47.0); HEMOGLOBIN 10.1 g/dL (12.0-16.0); IMM GRAN# 0.03 X1000 (0.0-0.04); IMM GRAN% 0.6 % (0.0-0.5); LYMPH# 1.02 X1000 (1.2-3.4); LYMPH% 21.7 % (20.5-51.1); MCH 26.4 PG (27-31); MCHC 30.3 g/dL (33-37); MCV 87.2 FL (81-99); MONO% 8.5 % (1.7-9.3); MPV 9.4 FL (7.4-10.4); NEUT# 2.92 X1000 (1.4-6.5); PLT 275 X1000 (130-400); RBC 3.82 XMIL (4.2-5.4); RDW 16.7 % (11.5-14.5); WBC 4.71 X1000 (4.8-10.8)
[2018-07-18 16:12] LABS: ALB/GLOB RATIO 0.6; ALBUMIN 2.6 g/dL (3.5-5.0); CREATININE 1.8 mg/dL (0.5-0.9); POTASSIUM 3.9 mmol/L (3.5-5.1); TOTAL BILIRUBIN 0.15 mg/dL (0.20-1.00); TOTAL PROTEIN 6.8 g/dL (6.3-8.3)
--- NOTE | 2018-07-18 22:16 | ECHO REPORT ---
ORDER DATE: 07/18/2018 MEASUREMENTS: 1. Left ventricular internal diameter diastole 3.7. 2. Septal thickness 1.2. 3. Aortic root 3.6. 4. Left atrium 2.6. SUMMARY: 1. Technically difficult study due to limited acoustic window quality. 2. Aortic valve is probably trileaflet and appears to open normally on 2-dimensional images. Peak gradient across the aortic valve is less than 10 mmHg. Mitral and tricuspid valves are without evidence of structural abnormality. There is trace tricuspid regurgitation. Pulmonic valves not well demonstrated. The aortic root is normal in size. 3. Normal left ventricular dimensions suggested on 2-dimensional images. Normal left ventricular chamber size with borderline concentric left hypertrophy is suggested on 2-dimensional images. Left ventricle appears hyperdynamic with estimated left ventricular ejection fraction at least 70%. No regional wall abnormalities evident. Doppler suggests grade 1 left ventricular diastolic dysfunction. Left atrium, right atrium, and right ventricle are normal in size with grossly preserved right ventricular systolic function. 4. No pericardial effusion. 5. Appearance of inferior vena cava suggests normal central venous pressure. cc: MD Shay Cardona MD
[2018-07-18] MEDS: LIPITOR PO SCH (22:43)
[2018-07-18] MEDS: SEROQUEL PO SCH (22:43)
[2018-07-19] MEDS: DUONEB (A & A) INH SCH ×4 (03:24→21:33)
[2018-07-19] MEDS: ZOSYN 2.25 GM in NS 50 ML IV SCH ×3 (04:48→17:08)
[2018-07-19] MEDS: HUMALOG SUBQ SCH ×3 (06:16→17:11)
[2018-07-19] MEDS: LOVENOX SUBQ SCH (06:25)
[2018-07-19] MEDS: SYNTHROID PO SCH (06:25)
[2018-07-19] MEDS: PROTONIX IV SCH (06:25)
--- NOTE | 2018-07-19 07:02 | DISCHARGE SUMMARY ---
ADMISSION DATE: 07/13/2018 DISCHARGE DATE: FINAL DISCHARGE DIAGNOSES: 1. Possible aspiration pneumonia. 2. Cerebrovascular accident with right-sided weakness. 3. Insulin-dependent diabetes mellitus. 4. Hypertension. 5. Hypothyroidism. 6. Aspiration pneumonia. 7. Acute kidney injury. 8. Expressive aphasia. 9. Rash on the left foot. Ms. Montes De Oca is a 67-year-old, white female patient, resident of [facility], admitted with more confusion. The patient was not able to give a whole lot history. The patient does have multiple medical problems. In the emergency room, the patient was hypoxemic. Chest x-ray did reveal bilateral lower lobe infiltrate and acute on chronic kidney disease. The patient was treated with IV antibiotics, symptomatic treatment, close observation. The patient was admitted to a telemetry bed. The patient underwent workup in the form of CT scan of the chest which did reveal bronchopneumonia and hepatitic steatosis. The patient was given IV hydration. Her renal function improved. Because of chronic kidney disease, I did nephrology consult. The recommendation is to continue current treatment. After hydration her renal function improved. Overall, patient is doing better. She received maximum benefit of hospitalization. Repeat chest x-ray did reveal pulmonary edema versus pneumonia. I gave her Lasix IV, stopped her IV fluid. Clinically, patient received maximum benefit of hospitalization. Her O2 sats staying between 96 to 98 percent on 2 L oxygen via nasal cannula. The patient remains afebrile. Vital signs stable. I am planning to discharge her back to [facility] on a few days of Rocephin and doxycycline. PHYSICAL EXAMINATION: Vital signs: Noted. Neck: Supple. Lungs: Bibasilar few crepitations. Heart: S1 and S2 heard. Abdomen: Soft, globular. Bowel sounds present. [employer]ION[employer] SALES COORDINATOR: Alert, awake. The right-sided weakness, expressive aphasia. Uncooperative for detailed exam. LABORATORY DATA: CBC done yesterday, hemoglobin 10.1, hematocrit 33.3, WBC count 4.71, platelet count 275,000. BUN 15, creatinine 1.8, sodium 141, potassium 3.9. Patient had an echocardiogram done yesterday, which was benign. Ejection fraction was 70%, aortic valve was trileaflet. Normal left ventricular dimension. No pericardial effusion. I also did renal ultrasound, no evidence of obstructive uropathy. Likely small non obstructive intrarenal stone on the right, low dense somewhat rounded focus associated with the left renal cortex that probably represents a lobule of normal tissue. Small mass is difficult to completely exclude. DISCHARGE INSTRUCTIONS: I am planning to discharge her back to rehab. Continue rest of the treatment. Monitor Accu-Chek. Aspiration precautions. Discharge orders as per separate sheet. cc: Shay Burciaga MD
[2018-07-19] MEDS: MUCOMYST 20% INH SCH ×2 (09:47→21:33)
[2018-07-19] MEDS: DOXYCYCLINE PO SCH (10:04)
[2018-07-19] MEDS: THERA M PLUS PO SCH (10:04)
[2018-07-19] MEDS: ASPIRIN EC PO SCH (10:04)
[2018-07-19] MEDS: PRINIVIL PO SCH (10:04)
[2018-07-19] MEDS: NORVASC PO SCH (10:04)
[2018-07-19] MEDS: PLAVIX PO SCH (10:04)
[2018-07-19] MEDS: XANAX PO SCH ×2 (10:04→15:29)
[2018-07-19] MEDS: NEURONTIN PO SCH ×2 (10:04→15:29)
[2018-07-19] MEDS: ICAR-C PO SCH (10:04)
[2018-07-19] MEDS ORDERED: INSULIN PEN NEEDLES ONE (10:04)
[2018-07-19] MEDS: LOPROX 0.77% TOP SCH (10:18)
[2018-07-19] MEDS: BASAGLAR SUBQ SCH (12:31)
[2018-07-19 20:27] VITALS: BP 152/75
--- NOTE | 2018-07-26 10:11 | ED EKG INTERP ---
This chart was entered by Hattie Azul Scribe, acting as scribe for Juaquin Edwards MD. EKG Interpretation - EKG Time of EKG reading by physician:: 22:52 EKG Read and Signed by:: Juaquin Edwards EKG Interpretation (*Must complete 3 of following elements*): Abnormal (sinus tachycardia, low voltage QRS, Borderline ECG) Rate: 101 Rhythm: sinus tachycardia Norris: normal QRS: normal Attestation - Physician/ DESIREE Attestation The physician spent face to face time with patient:: Yes Advanced Practice Provider documentation review:: Supervising physician onsite and consulted in the evaluation and care of this patient. The physician did have a face to face encounter with the patient. This chart was documented by the indicated scribe, (Hattie Azul Scribe) and accurately reflects the services I performed and decisions made by me, Juaquin Edwards MD, as attested by the provider's signature.
--- NOTE | 2018-08-16 09:42 | DISCHARGE SUMMARY ---
ADMISSION DATE: 07/13/2018 DISCHARGE DATE: 07/19/2018 DISCHARGE SUMMARY ADDENDUM: I reviewed Ms. Montes De Oca's record. Her presentation is consistent with systemic inflammatory response syndrome related to aspiration. cc: Shay Burciaga MD
== END 2018-07-19 21:56 | DRG 178 ==
LOC: SUPCPDRO → ED 18:53 → 3N 07-13 01:57 → SUATTDRO 07-13 01:57
PROVIDERS: ADMIT Internal Medicine; ATTEND Internal Medicine
CPT/HCPCS: 51702; 71010; 71045; 71250; 74019; 74020; 76770; 80048; 80053; 81001; 82550; 82805; 82948; 83605; 83735; 84443; 84484; 85025; 85610; 85730; 87040; 87081; 87275; 87276; 87430; 87804; 93005; 93306; 94640; 94761; 96365; 96375; 97162; 99285; A9270; C9113; J0696; J1650; J1815; J1940; J2405; J2543; J3480; J7030; S0164; XXXXX